=== PATIENT | female | born 1985 | race Caucasian/White ===

== ENCOUNTER 2021-02-15 10:08 | Outpatient (RCR) | payer OTHER, SELFPAY | END 2022-01-31 11:40 | disposition home or self-care (01) | LOC: HO.OT 10:08 | PROVIDERS: Visit Provider Nurse Practitioner Adult Health | DX: I89.0 Lymphedema, not elsewhere classified (principal) | CPT/HCPCS: 97167 ==

== ENCOUNTER 2022-11-15 12:30 | Emergency (ER) | payer OTHER, SELFPAY ==
[2022-11-15] VITALS (8 sets, daily range): BP systolic 109–157; BP diastolic 71–112; PULSE 95–114; RESP 15–19; TEMP 36.6–37; O2SAT 97–100; BMI 39.0
--- NOTE | 2022-11-15 12:46 | ED.GENADULT ---
HPI - General Adult General Chief complaint: Headache <Abbey Mckeon CNP - Last Filed: 11/15/22 14:38> Stated complaint: ARGUELLES,DIZZY THIS AM PER EMS <Abbey Mckeon CNP - Last Filed: 11/15/22 14:38> Time Seen by Provider: 11/15/22 19:46 <Abbey Mckeon CNP - Last Filed: 11/15/22 14:38> Source: patient <Ellen Muñiz MD - Last Filed: 11/15/22 23:38> Mode of arrival: EMS <Ellen Muñiz MD - Last Filed: 11/15/22 23:38> History of Present Illness HPI narrative: Is a 36-year-old female who presents with complaints of headache, head fullness, photosensitivity, spasms, dizziness. 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 Patient then describes a hospitalization episode and states that she has had additional COVID infections and has been treated with Paxil of it in but then states that she developed leg spasms. <Ellen Muñiz MD - Last Filed: 11/15/22 23:38> Related Data Home medications: Previous Rx's Medication Instructions Recorded nitrofurantoin 100 mg PO Q12H 5 days #10 caps 11/15/22 monohydrate/macrocrystals 100 mg capsule (Macrobid) <Abbey Mckeon CNP - Last Filed: 11/15/22 14:38> Allergies/adverse reactions: Allergies Allergy/AdvReac Type Severity Reaction Status Date / Time adhesive tape Allergy Unknown Unknown Verified 11/15/22 13:01 fluconazole Allergy Unknown Unknown Verified 11/15/22 13:01 nirmatrelvir Allergy Unknown Unknown Verified 11/15/22 13:01 [From Paxlovid (EUA)] ritonavir Allergy Unknown Unknown Verified 11/15/22 13:01 [From Paxlovid (EUA)] <Abbey Mckeon CNP - Last Filed: 11/15/22 14:38> Review of Systems Review of Systems: Pertinent positives and negatives as stated in HPI <Ellen Muñiz MD - Last Filed: 11/15/22 23:38> PMFSH Past Medical History Source: nursing notes reviewed <Ellen Muñiz MD - Last Filed: 11/15/22 23:38> Social History Social History: Social History Advance Directives: No Advance Directives Information Provided: No <bAbey Mckeon CNP - Last Filed: 11/15/22 14:38> Physical Exam ED Vital Signs: Vital Signs - 24 hr 11/15/22 12:54 11/15/22 16:57 11/15/22 19:46 Temperature 98 F 98 F 98.4 F Pulse Rate 112 H 100 102 H Respiratory Rate 19 19 18 Blood Pressure 129/93 H 157/80 H 109/71 Pulse Oximetry 100 99 97 Oxygen Delivery Method Room Air Room Air Room Air 11/15/22 19:49 11/15/22 19:50 11/15/22 19:51 Temperature Pulse Rate 108 H 102 H 114 H Respiratory Rate Blood Pressure 128/89 135/88 132/92 H Pulse Oximetry Oxygen Delivery Method 11/15/22 21:48 Temperature 98.6 F Pulse Rate 95 Respiratory Rate 15 Blood Pressure 122/71 Pulse Oximetry 100 Oxygen Delivery Method Room Air BMI result Body Mass Index 39.0 <Abbey Mckeon CNP - Last Filed: 11/15/22 14:38> Vital Signs - 24 hr 11/15/22 12:54 11/15/22 16:57 11/15/22 19:46 Temperature 98 F 98 F 98.4 F Pulse Rate 112 H 100 102 H Respiratory Rate 19 19 18 Blood Pressure 129/93 H 157/80 H 109/71 Pulse Oximetry 100 99 97 Oxygen Delivery Method Room Air Room Air Room Air 11/15/22 19:49 11/15/22 19:50 11/15/22 19:51 Temperature Pulse Rate 108 H 102 H 114 H Respiratory Rate Blood Pressure 128/89 135/88 132/92 H Pulse Oximetry Oxygen Delivery Method 11/15/22 21:48 Temperature 98.6 F Pulse Rate 95 Respiratory Rate 15 Blood Pressure 122/71 Pulse Oximetry 100 Oxygen Delivery Method Room Air BMI result Body Mass Index 39.0 VITAL SIGNS: Reviewed. GENERAL: Well developed, well nourished, in no acute distress. HEAD: Normocephalic/atraumatic EYES: PERRLA, EOMI EARS: Ext canals without abnormality, TMs non-bulging and non-erythematous NOSE: Nares patent bilateral OROPHARYNX: no oral lesions noted, posterior pharynx clear, there is some gingival hyperplasia NECK: Supple, no adenopathy LUNGS: Normal breath sounds. No adventitious sounds or accessory muscle use. SpO2<100> CARDIOVASCULAR: Regular rate and rhythm without noted murmurs ABDOMEN: Soft, non-tender, non-distended with bowel sounds. MUSCULOSKELETAL: No tenderness, deformities, or effusions noted on gross inspection. EXTREMITIES: No cyanosis, clubbing or edema. SKIN: Inspection of the skin reveals no rashes NEUROLOGIC: Alert and oriented x 4. Strength and sensation to light touch were grossly intact x 4. <Ellen Muñiz MD - Last Filed: 11/15/22 23:38> Course Course Course Narrative: This is an RME: Additional HPI, ROS, PE not included below will be deferred to primary provider. Patient is a 36-year-old female who presents to the emergency department via EMS with multiple complaints. She is screaming hysterically in the waiting room, tearful. Per EMS she was reporting severe pain 10/10; headache, diffuse body aches, knee pain, sciatica, dizziness, vertigo, photophobia. Patient reports left wrist injury, back injury, leg injury, ? both. She reports headache and dizziness, 2 days. Having severe back spasms, she is sitting in a wheelchair, but attempting to lye down on it. Having difficulty obtaining any clear story, she will not answer direct questioning, difficult to redirect. I had a ketamine treatment last year at [facility] and I've never been the same . She states her doctor sent her here, she called their office today. Offered acetaminophen/ibuprofen/Zofran she declines stating she can not take anything by mouth. Plan: Labs, urinalysis, viral testing, spoke with charge hand, anticipate her to have difficulty in waiting room 14:36 - patient has been very argumentative with security staff, other patients waiting room, has made statement about placing herself on the floor as sitting in the chair is too uncomfortable for her. She has been able to speak clearly, communicate all for concerns, she has been sleeping on phone as well. Although, she continues to not answer much questioning regarding her chief complaints/ symptoms at this time <Abbey Mckeon CNP - Last Filed: 11/15/22 14:38> Medications Administered Discontinued Medications Generic Name Dose Route Start Last Admin Trade Name Freq PRN Reason Stop Dose Admin Acetaminophen 650 mg 11/15/22 16:52 11/15/22 16:56 Acetaminophen 325 Mg Tablet PO 11/15/22 16:53 650 mg ONCE ONE Administration Acetaminophen 975 mg 11/15/22 22:51 11/15/22 23:11 Acetaminophen 325 Mg Tablet PO 11/15/22 22:52 975 mg ONCE ONE Administration Acetaminophen/Butalbital/Caffeine 1 tab 11/15/22 22:51 11/15/22 23:12 Butalb/Acetamin/Caff 50/325/40 Tablet PO 11/15/22 22:52 1 tab ONCE ONE Administration Ketorolac Tromethamine 15 mg 11/15/22 22:51 11/15/22 23:12 Ketorolac Tromethamine 15 Mg/Ml Vial IM 11/15/22 22:52 15 mg ONCE ONE Administration <Abbey Mckeon CNP - Last Filed: 11/15/22 14:38> Medications Administered Discontinued Medications Generic Name Dose Route Start Last Admin Trade Name Freq PRN Reason Stop Dose Admin Acetaminophen 650 mg 11/15/22 16:52 11/15/22 16:56 Acetaminophen 325 Mg Tablet PO 11/15/22 16:53 650 mg ONCE ONE Administration Acetaminophen 975 mg 11/15/22 22:51 11/15/22 23:11 Acetaminophen 325 Mg Tablet PO 11/15/22 22:52 975 mg ONCE ONE Administration Acetaminophen/Butalbital/Caffeine 1 tab 11/15/22 22:51 11/15/22 23:12 Butalb/Acetamin/Caff 50/325/40 Tablet PO 11/15/22 22:52 1 tab ONCE ONE Administration Ketorolac Tromethamine 15 mg 11/15/22 22:51 11/15/22 23:12 Ketorolac Tromethamine 15 Mg/Ml Vial IM 11/15/22 22:52 15 mg ONCE ONE Administration <Ellen Muñiz MD - Last Filed: 11/15/22 23:38> Medical Decision Making Medical Decision Making MDM Narrative: 36-year-old female who is here with multiple symptoms, I obtained records from both [facility] (work patient was seen in October of this year) as well as [facility] core patient was seen at the end of August 2022. Patient did describe that she has a primary care provider, Dr. Monet, who is through the [facility] system as well as she reports having been evaluated by a Neurology as well and she says that each time that she has worked up they can not find anything?. Patient does attribute some of her problems to a time when she states that ketamine was used. Orthostatics are negative. I have reviewed all of her lab work and there are no findings to better explain patient's presentation. ESR was noted to be within normal limits, CRP was mildly elevated and JORDON panel is pending. Patient was provided with Tylenol/Toradol/Fioricet. Urinalysis does demonstrate a UTI for which patient will be treated by initially receiving Macrobid here in the emergency room. Otherwise, I consulted with the inpatient hospitalist and we reviewed the treatment plans currently available for long COVID? which patient had intimated could be at play. On referencing the [facility] website the current recommendations are for physical therapy and if patient is on anti depressants possible adjustment of this medication. I did give patient expectations for her current workup. I did extensively review the documentation from [facility] and [facility] which both describe fairly extensive workups to include CT of the head, CT of the chest/V/Q scans. On re-evaluation patient is feeling better. She is otherwise stable for discharge to home. <Ellen Muñiz MD - Last Filed: 11/15/22 23:38> Differential Diagnosis Please see the discussion above <Ellen Muñiz MD - Last Filed: 11/15/22 23:38> Lab Data Please see the discussion above <Ellen Muñiz MD - Last Filed: 11/15/22 23:38> Result Diagrams: 11/15/22 13:16 11/15/22 13:16 <Abbey Mckeon CNP - Last Filed: 11/15/22 14:38> Labs: Lab Results 11/15/22 11/15/22 11/15/22 Range/Units 13:16 13:16 13:16 WBC 8.0 (4.8-10.8) X10*3/uL RBC 5.34 (4.20-5.50) X10*6/uL Hgb 13.4 (12.0-16.0) g/dl Hct 43.3 (37.0-47.0) % MCV 81.1 (80.0-98.0) fL MCH 25.1 L (27.0-33.0) pg MCHC 30.9 L (31.0-35.0) g/dl RDW 15.2 (11.0-16.0) % Plt Count 383 (160-400) X10*3/uL MPV 9.5 (9.4-12.3) fL Immature Gran % (Auto) 0.4 (0.0-0.4) % Neut % (Auto) 50.7 (45-73) % Lymph % (Auto) 39.5 (20-40) % Reagan % (Auto) 6.9 (2-11) % Eos % (Auto) 2.1 (0-4) % Baso % (Auto) 0.4 (0-2) % Lymph # (Auto) 3.2 (1.2-4.9) X10*3/uL Reagan # (Auto) 0.6 (0.1-1.2) X10*3/uL Eos # (Auto) 0.2 (0.0-0.4) X10*3/uL Baso # (Auto) 0.0 (0.0-0.2) X10*3/uL Abs Immat Gran (auto) 0.03 (0.00-0.03) X10*3/uL Absolute Neuts (auto) 4.1 (2.0-8.3) x10*3/uL Absolute Nucleated RBC 0.000 (0.0-0.012) X10*3/uL Nucleated RBC % (auto) 0.0 (0.0-0.2) /100WBC ESR (0-20) MM/HR Sodium 142 (135-145) mmol/L Potassium 3.8 (3.3-5.1) mmol/L Chloride 111 H (96-108) mmol/L Carbon Dioxide 20 L (22-29) mmol/L Anion Gap 15 (12-20) BUN 5 L (9-16) mg/dL Creatinine 0.81 (0.5-1.4) mg/dL Estim Creat Clear Calc 97.2 Estimated GFR > 60 Random Glucose 120 H (60-115) mg/dL Calcium 9.2 (8.4-10.2) mg/dL Total Bilirubin 0.5 (0.0-1.0) mg/dL AST 13 (5-31) U/L ALT 14 (0-31) U/L Alkaline Phosphatase 132 H (39-117) U/L Troponin I High Sens (<3.5-17.0) ng/L C-Reactive Protein 1.90 H (< or = 0.50) mg/dL Total Protein 6.6 (6.5-8.0) g/dL Albumin 4.0 (3.5-5.0) g/dL Lipase 18 (8-78) U/L Beta HCG, Quant < 2 mIU/mL Urine Color Urine Appearance Urine pH (5.0-9.0) Ur Specific Mcclusky (1.005-1.025) Urine Protein (Neg-Trace) mg/dL Urine Glucose (UA) (Negative) mg/dL Urine Ketones (Negative) mg/dL Urine Blood (Negative) Urine Nitrite (Negative) Ur Leukocyte Esterase (Negative) Urine RBC (0-2) /HPF Urine WBC (0-5) /HPF Ur Squamous Epith Cells (0-2) /HPF Urine Bacteria (None Seen) Hyaline Casts (0-2) /LPF Urine Test (NEGATIVE) Urine Opiates Screen (Not Detect) Urine Fentanyl Screen (Not Detect) Ur Barbiturates Screen (Not Detect) Ur Phencyclidine Scrn (Not Detect) Ur Amphetamines Screen (Not Detect) U Benzodiazepines Scrn (Not Detect) Urine Cocaine Screen (Not Detect) U Marijuana (THC) Screen (Not Detect) Ethyl Alcohol < 10 mg/dL COVID-19 (MOLLY) (Negative) COVID-19 Clin Com Influenza Type A (DAHLIA) Negative (Negative) Influenza Type B (DAHLIA) Negative (Negative) Influenza A & B Note See Note 11/15/22 11/15/22 11/15/22 Range/Units 13:16 13:16 13:16 WBC (4.8-10.8) X10*3/uL RBC (4.20-5.50) X10*6/uL Hgb (12.0-16.0) g/dl Hct (37.0-47.0) % MCV (80.0-98.0) fL MCH (27.0-33.0) pg MCHC (31.0-35.0) g/dl RDW (11.0-16.0) % Plt Count (160-400) X10*3/uL MPV (9.4-12.3) fL Immature Gran % (Auto) (0.0-0.4) % Neut % (Auto) (45-73) % Lymph % (Auto) (20-40) % Reagan % (Auto) (2-11) % Eos % (Auto) (0-4) % Baso % (Auto) (0-2) % Lymph # (Auto) (1.2-4.9) X10*3/uL Reagan # (Auto) (0.1-1.2) X10*3/uL Eos # (Auto) (0.0-0.4) X10*3/uL Baso # (Auto) (0.0-0.2) X10*3/uL Abs Immat Gran (auto) (0.00-0.03) X10*3/uL Absolute Neuts (auto) (2.0-8.3) x10*3/uL Absolute Nucleated RBC (0.0-0.012) X10*3/uL Nucleated RBC % (auto) (0.0-0.2) /100WBC ESR 13 (0-20) MM/HR Sodium (135-145) mmol/L Potassium (3.3-5.1) mmol/L Chloride (96-108) mmol/L Carbon Dioxide (22-29) mmol/L Anion Gap (12-20) BUN (9-16) mg/dL Creatinine (0.5-1.4) mg/dL Estim Creat Clear Calc Estimated GFR Random Glucose (60-115) mg/dL Calcium (8.4-10.2) mg/dL Total Bilirubin (0.0-1.0) mg/dL AST (5-31) U/L ALT (0-31) U/L Alkaline Phosphatase (39-117) U/L Troponin I High Sens < 3.5 (<3.5-17.0) ng/L C-Reactive Protein (< or = 0.50) mg/dL Total Protein (6.5-8.0) g/dL Albumin (3.5-5.0) g/dL Lipase (8-78) U/L Beta HCG, Quant mIU/mL Urine Color Urine Appearance Urine pH (5.0-9.0) Ur Specific Mcclusky (1.005-1.025) Urine Protein (Neg-Trace) mg/dL Urine Glucose (UA) (Negative) mg/dL Urine Ketones (Negative) mg/dL Urine Blood (Negative) Urine Nitrite (Negative) Ur Leukocyte Esterase (Negative) Urine RBC (0-2) /HPF Urine WBC (0-5) /HPF Ur Squamous Epith Cells (0-2) /HPF Urine Bacteria (None Seen) Hyaline Casts (0-2) /LPF Urine Test (NEGATIVE) Urine Opiates Screen (Not Detect) Urine Fentanyl Screen (Not Detect) Ur Barbiturates Screen (Not Detect) Ur Phencyclidine Scrn (Not Detect) Ur Amphetamines Screen (Not Detect) U Benzodiazepines Scrn (Not Detect) Urine Cocaine Screen (Not Detect) U Marijuana (THC) Screen (Not Detect) Ethyl Alcohol mg/dL COVID-19 (MOLLY) Negative (Negative) COVID-19 Clin Com See Note Influenza Type A (DAHLIA) (Negative) Influenza Type B (DAHLIA) (Negative) Influenza A & B Note 11/15/22 11/15/22 11/15/22 Range/Units 20:21 20:21 20:21 WBC (4.8-10.8) X10*3/uL RBC (4.20-5.50) X10*6/uL Hgb (12.0-16.0) g/dl Hct (37.0-47.0) % MCV (80.0-98.0) fL MCH (27.0-33.0) pg MCHC (31.0-35.0) g/dl RDW (11.0-16.0) % Plt Count (160-400) X10*3/uL MPV (9.4-12.3) fL Immature Gran % (Auto) (0.0-0.4) % Neut % (Auto) (45-73) % Lymph % (Auto) (20-40) % Reagan % (Auto) (2-11) % Eos % (Auto) (0-4) % Baso % (Auto) (0-2) % Lymph # (Auto) (1.2-4.9) X10*3/uL Reagan # (Auto) (0.1-1.2) X10*3/uL Eos # (Auto) (0.0-0.4) X10*3/uL Baso # (Auto) (0.0-0.2) X10*3/uL Abs Immat Gran (auto) (0.00-0.03) X10*3/uL Absolute Neuts (auto) (2.0-8.3) x10*3/uL Absolute Nucleated RBC (0.0-0.012) X10*3/uL Nucleated RBC % (auto) (0.0-0.2) /100WBC ESR (0-20) MM/HR Sodium (135-145) mmol/L Potassium (3.3-5.1) mmol/L Chloride (96-108) mmol/L Carbon Dioxide (22-29) mmol/L Anion Gap (12-20) BUN (9-16) mg/dL Creatinine (0.5-1.4) mg/dL Estim Creat Clear Calc Estimated GFR Random Glucose (60-115) mg/dL Calcium (8.4-10.2) mg/dL Total Bilirubin (0.0-1.0) mg/dL AST (5-31) U/L ALT (0-31) U/L Alkaline Phosphatase (39-117) U/L Troponin I High Sens (<3.5-17.0) ng/L C-Reactive Protein (< or = 0.50) mg/dL Total Protein (6.5-8.0) g/dL Albumin (3.5-5.0) g/dL Lipase (8-78) U/L Beta HCG, Quant mIU/mL Urine Color Yellow Urine Appearance Cloudy Urine pH 7.5 (5.0-9.0) Ur Specific Mcclusky >= 1.030 H (1.005-1.025) Urine Protein Trace (Neg-Trace) mg/dL Urine Glucose (UA) Negative (Negative) mg/dL Urine Ketones Trace (Negative) mg/dL Urine Blood Negative (Negative) Urine Nitrite Negative (Negative) Ur Leukocyte Esterase Trace H (Negative) Urine RBC 3-5 H (0-2) /HPF Urine WBC 0-5 (0-5) /HPF Ur Squamous Epith Cells 11-20 (0-2) /HPF Urine Bacteria Trace (None Seen) Hyaline Casts 0-2 (0-2) /LPF Urine Test NEGATIVE (NEGATIVE) Urine Opiates Screen Not Detected (Not Detect) Urine Fentanyl Screen Not Detected (Not Detect) Ur Barbiturates Screen Not Detected (Not Detect) Ur Phencyclidine Scrn Not Detected (Not Detect) Ur Amphetamines Screen Not Detected (Not Detect) U Benzodiazepines Scrn Not Detected (Not Detect) Urine Cocaine Screen Not Detected (Not Detect) U Marijuana (THC) Screen Not Detected (Not Detect) Ethyl Alcohol mg/dL COVID-19 (MOLLY) (Negative) COVID-19 Clin Com Influenza Type A (DAHLIA) (Negative) Influenza Type B (DAHLIA) (Negative) Influenza A & B Note <Abbey Mckeon CNP - Last Filed: 11/15/22 14:38> Lab Results 11/15/22 11/15/22 11/15/22 Range/Units 13:16 13:16 13:16 WBC 8.0 (4.8-10.8) X10*3/uL RBC 5.34 (4.20-5.50) X10*6/uL Hgb 13.4 (12.0-16.0) g/dl Hct 43.3 (37.0-47.0) % MCV 81.1 (80.0-98.0) fL MCH 25.1 L (27.0-33.0) pg MCHC 30.9 L (31.0-35.0) g/dl RDW 15.2 (11.0-16.0) % Plt Count 383 (160-400) X10*3/uL MPV 9.5 (9.4-12.3) fL Immature Gran % (Auto) 0.4 (0.0-0.4) % Neut % (Auto) 50.7 (45-73) % Lymph % (Auto) 39.5 (20-40) % Reagan % (Auto) 6.9 (2-11) % Eos % (Auto) 2.1 (0-4) % Baso % (Auto) 0.4 (0-2) % Lymph # (Auto) 3.2 (1.2-4.9) X10*3/uL Reagan # (Auto) 0.6 (0.1-1.2) X10*3/uL Eos # (Auto) 0.2 (0.0-0.4) X10*3/uL Baso # (Auto) 0.0 (0.0-0.2) X10*3/uL Abs Immat Gran (auto) 0.03 (0.00-0.03) X10*3/uL Absolute Neuts (auto) 4.1 (2.0-8.3) x10*3/uL Absolute Nucleated RBC 0.000 (0.0-0.012) X10*3/uL Nucleated RBC % (auto) 0.0 (0.0-0.2) /100WBC ESR (0-20) MM/HR Sodium 142 (135-145) mmol/L Potassium 3.8 (3.3-5.1) mmol/L Chloride 111 H (96-108) mmol/L Carbon Dioxide 20 L (22-29) mmol/L Anion Gap 15 (12-20) BUN 5 L (9-16) mg/dL Creatinine 0.81 (0.5-1.4) mg/dL Estim Creat Clear Calc 97.2 Estimated GFR > 60 Random Glucose 120 H (60-115) mg/dL Calcium 9.2 (8.4-10.2) mg/dL Total Bilirubin 0.5 (0.0-1.0) mg/dL AST 13 (5-31) U/L ALT 14 (0-31) U/L Alkaline Phosphatase 132 H (39-117) U/L Troponin I High Sens (<3.5-17.0) ng/L C-Reactive Protein 1.90 H (< or = 0.50) mg/dL Total Protein 6.6 (6.5-8.0) g/dL Albumin 4.0 (3.5-5.0) g/dL Lipase 18 (8-78) U/L Beta HCG, Quant < 2 mIU/mL Urine Color Urine Appearance Urine pH (5.0-9.0) Ur Specific Mcclusky (1.005-1.025) Urine Protein (Neg-Trace) mg/dL Urine Glucose (UA) (Negative) mg/dL Urine Ketones (Negative) mg/dL Urine Blood (Negative) Urine Nitrite (Negative) Ur Leukocyte Esterase (Negative) Urine RBC (0-2) /HPF Urine WBC (0-5) /HPF Ur Squamous Epith Cells (0-2) /HPF Urine Bacteria (None Seen) Hyaline Casts (0-2) /LPF Urine Test (NEGATIVE) Urine Opiates Screen (Not Detect) Urine Fentanyl Screen (Not Detect) Ur Barbiturates Screen (Not Detect) Ur Phencyclidine Scrn (Not Detect) Ur Amphetamines Screen (Not Detect) U Benzodiazepines Scrn (Not Detect) Urine Cocaine Screen (Not Detect) U Marijuana (THC) Screen (Not Detect) Ethyl Alcohol < 10 mg/dL COVID-19 (MOLLY) (Negative) COVID-19 Clin Com Influenza Type A (DAHLIA) Negative (Negative) Influenza Type B (DAHLIA) Negative (Negative) Influenza A & B Note See Note 11/15/22 11/15/22 11/15/22 Range/Units 13:16 13:16 13:16 WBC (4.8-10.8) X10*3/uL RBC (4.20-5.50) X10*6/uL Hgb (12.0-16.0) g/dl Hct (37.0-47.0) % MCV (80.0-98.0) fL MCH (27.0-33.0) pg MCHC (31.0-35.0) g/dl RDW (11.0-16.0) % Plt Count (160-400) X10*3/uL MPV (9.4-12.3) fL Immature Gran % (Auto) (0.0-0.4) % Neut % (Auto) (45-73) % Lymph % (Auto) (20-40) % Reagan % (Auto) (2-11) % Eos % (Auto) (0-4) % Baso % (Auto) (0-2) % Lymph # (Auto) (1.2-4.9) X10*3/uL Reagan # (Auto) (0.1-1.2) X10*3/uL Eos # (Auto) (0.0-0.4) X10*3/uL Baso # (Auto) (0.0-0.2) X10*3/uL Abs Immat Gran (auto) (0.00-0.03) X10*3/uL Absolute Neuts (auto) (2.0-8.3) x10*3/uL Absolute Nucleated RBC (0.0-0.012) X10*3/uL Nucleated RBC % (auto) (0.0-0.2) /100WBC ESR 13 (0-20) MM/HR Sodium (135-145) mmol/L Potassium (3.3-5.1) mmol/L Chloride (96-108) mmol/L Carbon Dioxide (22-29) mmol/L Anion Gap (12-20) BUN (9-16) mg/dL Creatinine (0.5-1.4) mg/dL Estim Creat Clear Calc Estimated GFR Random Glucose (60-115) mg/dL Calcium (8.4-10.2) mg/dL Total Bilirubin (0.0-1.0) mg/dL AST (5-31) U/L ALT (0-31) U/L Alkaline Phosphatase (39-117) U/L Troponin I High Sens < 3.5 (<3.5-17.0) ng/L C-Reactive Protein (< or = 0.50) mg/dL Total Protein (6.5-8.0) g/dL Albumin (3.5-5.0) g/dL Lipase (8-78) U/L Beta HCG, Quant mIU/mL Urine Color Urine Appearance Urine pH (5.0-9.0) Ur Specific Mcclusky (1.005-1.025) Urine Protein (Neg-Trace) mg/dL Urine Glucose (UA) (Negative) mg/dL Urine Ketones (Negative) mg/dL Urine Blood (Negative) Urine Nitrite (Negative) Ur Leukocyte Esterase (Negative) Urine RBC (0-2) /HPF Urine WBC (0-5) /HPF Ur Squamous Epith Cells (0-2) /HPF Urine Bacteria (None Seen) Hyaline Casts (0-2) /LPF Urine Test (NEGATIVE) Urine Opiates Screen (Not Detect) Urine Fentanyl Screen (Not Detect) Ur Barbiturates Screen (Not Detect) Ur Phencyclidine Scrn (Not Detect) Ur Amphetamines Screen (Not Detect) U Benzodiazepines Scrn (Not Detect) Urine Cocaine Screen (Not Detect) U Marijuana (THC) Screen (Not Detect) Ethyl Alcohol mg/dL COVID-19 (MOLLY) Negative (Negative) COVID-19 Clin Com See Note Influenza Type A (DAHLIA) (Negative) Influenza Type B (DAHLIA) (Negative) Influenza A & B Note 11/15/22 11/15/22 11/15/22 Range/Units 20:21 20:21 20:21 WBC (4.8-10.8) X10*3/uL RBC (4.20-5.50) X10*6/uL Hgb (12.0-16.0) g/dl Hct (37.0-47.0) % MCV (80.0-98.0) fL MCH (27.0-33.0) pg MCHC (31.0-35.0) g/dl RDW (11.0-16.0) % Plt Count (160-400) X10*3/uL MPV (9.4-12.3) fL Immature Gran % (Auto) (0.0-0.4) % Neut % (Auto) (45-73) % Lymph % (Auto) (20-40) % Reagan % (Auto) (2-11) % Eos % (Auto) (0-4) % Baso % (Auto) (0-2) % Lymph # (Auto) (1.2-4.9) X10*3/uL Reagan # (Auto) (0.1-1.2) X10*3/uL Eos # (Auto) (0.0-0.4) X10*3/uL Baso # (Auto) (0.0-0.2) X10*3/uL Abs Immat Gran (auto) (0.00-0.03) X10*3/uL Absolute Neuts (auto) (2.0-8.3) x10*3/uL Absolute Nucleated RBC (0.0-0.012) X10*3/uL Nucleated RBC % (auto) (0.0-0.2) /100WBC ESR (0-20) MM/HR Sodium (135-145) mmol/L Potassium (3.3-5.1) mmol/L Chloride (96-108) mmol/L Carbon Dioxide (22-29) mmol/L Anion Gap (12-20) BUN (9-16) mg/dL Creatinine (0.5-1.4) mg/dL Estim Creat Clear Calc Estimated GFR Random Glucose (60-115) mg/dL Calcium (8.4-10.2) mg/dL Total Bilirubin (0.0-1.0) mg/dL AST (5-31) U/L ALT (0-31) U/L Alkaline Phosphatase (39-117) U/L Troponin I High Sens (<3.5-17.0) ng/L C-Reactive Protein (< or = 0.50) mg/dL Total Protein (6.5-8.0) g/dL Albumin (3.5-5.0) g/dL Lipase (8-78) U/L Beta HCG, Quant mIU/mL Urine Color Yellow Urine Appearance Cloudy Urine pH 7.5 (5.0-9.0) Ur Specific Mcclusky >= 1.030 H (1.005-1.025) Urine Protein Trace (Neg-Trace) mg/dL Urine Glucose (UA) Negative (Negative) mg/dL Urine Ketones Trace (Negative) mg/dL Urine Blood Negative (Negative) Urine Nitrite Negative (Negative) Ur Leukocyte Esterase Trace H (Negative) Urine RBC 3-5 H (0-2) /HPF Urine WBC 0-5 (0-5) /HPF Ur Squamous Epith Cells 11-20 (0-2) /HPF Urine Bacteria Trace (None Seen) Hyaline Casts 0-2 (0-2) /LPF Urine Test NEGATIVE (NEGATIVE) Urine Opiates Screen Not Detected (Not Detect) Urine Fentanyl Screen Not Detected (Not Detect) Ur Barbiturates Screen Not Detected (Not Detect) Ur Phencyclidine Scrn Not Detected (Not Detect) Ur Amphetamines Screen Not Detected (Not Detect) U Benzodiazepines Scrn Not Detected (Not Detect) Urine Cocaine Screen Not Detected (Not Detect) U Marijuana (THC) Screen Not Detected (Not Detect) Ethyl Alcohol mg/dL COVID-19 (MOLLY) (Negative) COVID-19 Clin Com Influenza Type A (DAHLIA) (Negative) Influenza Type B (DAHLIA) (Negative) Influenza A & B Note <Ellen Muñiz MD - Last Filed: 11/15/22 23:38> External Record Review Records from [facility] and [facility] <Ellen Muñiz MD - Last Filed: 11/15/22 23:38> Discharge Plan Discharge Clinical Impression: Headache, Muscle spasm, UTI (urinary tract infection) <Abbey Mckeon CNP - Last Filed: 11/15/22 14:38> Patient Disposition: Still a Patient <Abbey Mckeon CNP - Last Filed: 11/15/22 14:38> Instructions: Urinary Tract Infection in Women (ED), Muscle Spasm (ED), General Headache (ED) <Abbey Mckeon CNP - Last Filed: 11/15/22 14:38> Additional Instructions: 1. It is very important that you follow-up with your primary care provider. Current recommendations for your symptoms are physical therapy. 2. You have a UTI and should complete the entire course of antibiotics as ordered. Please continue to remain well hydrated. Return to the ER for any worsening symptoms. <Abbey Mckeon CNP - Last Filed: 11/15/22 14:38> Prescriptions: New nitrofurantoin monohyd/m-cryst [Macrobid] 100 mg capsule 100 mg PO Q12H 5 Days Qty: 10 0RF Rx Instructions: must administer with a meal/food <Abbey Mckeon CNP - Last Filed: 11/15/22 14:38> Referrals: Erika Tran MD [Primary Care Provider] - <Abbey Mckeon CNP - Last Filed: 11/15/22 14:38>
[2022-11-15 13:27] LABS: MANUAL DIFF FLAG NO
[2022-11-15 13:29] LABS: Basophils Percent Auto 0.4 % (0-2); Eosinophils Absolute Auto 0.2 X10*3/uL (0.0-0.4); Eosinophils Percent Auto 2.1 % (0-4); Hematocrit 43.3 % (37.0-47.0); Hemoglobin 13.4 g/dl (12.0-16.0); Imm Gran Abs Auto 0.03 X10*3/uL (0.00-0.03); Imm Gran Pct Auto 0.4 % (0.0-0.4); Lymphocytes Absolute Auto 3.2 X10*3/uL (1.2-4.9); Lymphocytes Percent Auto 39.5 % (20-40); Mean Corpuscular HGB Conc 30.9 g/dl (31.0-35.0); Mean Corpuscular Hemoglobin 25.1 pg (27.0-33.0); Mean Corpuscular Volume 81.1 fL (80.0-98.0); Mean Platelet Volume 9.5 fL (9.4-12.3); Monocytes Absolute Auto 0.6 X10*3/uL (0.1-1.2); Monocytes Percent Auto 6.9 % (2-11); Neutrophils Absolute Auto 4.1 x10*3/uL (2.0-8.3); Neutrophils Percent Auto 50.7 % (45-73); Platelet Count 383 X10*3/uL (160-400); Red Blood Count 5.34 X10*6/uL (4.20-5.50); Red Cell Distribution Width 15.2 % (11.0-16.0)
[2022-11-15 13:44] LABS: COVID-19 Test Negative (Negative); IDNOW Serial# 16C4AD1C
[2022-11-15 13:45] LABS: IDNOW Serial# BCCEAD1C; Influenza A Negative (Negative); Influenza B2 Negative (Negative)
[2022-11-15 13:49] LABS: Alanine Aminotransferase 14 U/L (0-31); Alkaline Phosphatase 132 U/L (39-117); Anion Gap 15 (12-20); Aspartate Amino Transferase 13 U/L (5-31); Bilirubin Total 0.5 mg/dL (0.0-1.0); Blood Urea Nitrogen 5 mg/dL (9-16); Calcium 9.2 mg/dL (8.4-10.2); Carbon Dioxide 20 mmol/L (22-29); Chloride 111 mmol/L (96-108); Creatinine Clr Calc Pharmacy 97.2; Estimated Glomerular Filt Rate > 60; Ethanol < 10 mg/dL; Glucose Random 120 mg/dL (60-115); Lipase 18 U/L (8-78); Potassium 3.8 mmol/L (3.3-5.1); Sodium 142 mmol/L (135-145); Total Protein 6.6 g/dL (6.5-8.0)
[2022-11-15 13:59] LABS: Troponin-I High Sensitivity < 3.5 ng/L (<3.5-17.0)
--- NOTE | 2022-11-15 14:36 | PC.NURSE ---
pt speaking in full clear sentences on the phone and arguing with another pt in the mwr
[2022-11-15] MEDS: Acetaminophen 325 MG TABLET 650 MG PO (16:56)
--- NOTE | 2022-11-15 17:00 | PC.NURSE ---
reassessment done, now alert, pleasant, c/o olivier and photophobia, sitting in chair straight and both legs propped up on leg rests
[2022-11-15 20:28] LABS: HCG Quantitative < 2 mIU/mL
[2022-11-15 20:30] LABS: Appearance Urine Cloudy; Color Urine Yellow; Glucose Urine UA Negative (Negative); Leukocyte Esterase Urine Trace (Negative); Nitrite Urine Negative (Negative); PH 7.5 (5.0-9.0); Specific Gravity - Urine >= 1.030 (1.005-1.025); UMIC TRIGGER UACC YES; Urine Blood Negative (Negative); Urine Ketones Trace mg/dL (Negative); Urine Protein Trace mg/dL (Neg-Trace)
[2022-11-15 20:34] LABS: UPreg QC Valid YES; Urine Pregnancy NEGATIVE (NEGATIVE)
[2022-11-15 20:35] LABS: Bacteria Urine Trace (None Seen); Hyaline Casts Urine 0-2 /LPF (0-2); WBC Urine 0-5 /HPF (0-5)
[2022-11-15 20:43] LABS: Amphetamine Screen Urine Not Detected (Not Detect); Barbiturates, Urine Not Detected (Not Detect); Benzodiazepines Screen Urine Not Detected (Not Detect); Cannabinoid Screen Urine Not Detected (Not Detect); Cocaine Screen Urine Not Detected (Not Detect); Fentanyl, urine Not Detected (Not Detect); Opiate Screen Urine Not Detected (Not Detect); Phencyclidine Screen Urine Not Detected (Not Detect)
[2022-11-15 22:49] LABS: Erythrocyte Sedimentation Rate 13 MM/HR (0-20)
[2022-11-15] MEDS: Acetaminophen 325 MG TABLET 975 MG PO (23:11)
[2022-11-15] MEDS: Butalb/Acetamin/Caff 50/325/40 TABLET 1 TAB PO (23:12)
[2022-11-15] MEDS: Ketorolac Tromethamine 15 MG/ML VIAL IM (23:12)
[2022-11-16 00:05] VITALS: BP 134/84; PULSE 93; RESP 16; TEMP 36.9; O2SAT 99
[2022-11-16] MEDS: Nitrofurantoin Monohyd/M-Cryst 100 MG CAPSULE PO (00:09)
[2022-11-19 14:53] LABS: Anti Nuclear Antibody Screen NEGATIVE (NEGATIVE)
== END 2022-11-16 00:30 | disposition home or self-care (01) ==
PROVIDERS: Nurse Practitioner Family; Emergency Provider Student in an Organized Health Care Education/Training Program; PCP Internal Medicine
DX: R51.9 Headache, unspecified (principal); M62.838 Other muscle spasm; N39.0 Urinary tract infection, site not specified; Z20.822 Contact with and (suspected) exposure to COVID-19
CPT/HCPCS: 36415; 80053; 80307; 81001; 81025; 82077; 83690; 84484; 84702; 85025; 85652; 86038; 86039; 86140; 87502; 87635; 96372; 99284; J1885

== ENCOUNTER 2023-10-30 14:28 | Outpatient (AMB) | payer MEDICARE, MEDICAID, SELFPAY ==
--- NOTE | 2023-10-30 14:33 | MHC.OFFVIS ---
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 These episodes last for about 3 minutes. This has been going on since June 2024. Industrial Cook Required: No Allergies adhesive tape Allergy (Unknown, Verified 10/30/23 14:37) Unknown fluconazole Allergy (Unknown, Verified 10/30/23 14:37) Unknown nirmatrelvir [From Paxlovid (EUA)] Allergy (Unknown, Verified 10/30/23 14:37) Unknown ritonavir [From Paxlovid (EUA)] Allergy (Unknown, Verified 10/30/23 14:37) Unknown Medication List - Last Reconciled 10/30/23 by Peace Stanton MD albuterol sulfate 90 mcg/actuation 2 puffs inhalation Q6H PRN ammonium lactate 12% 1 appl topical DAILY budesonide-formoterol 80-4.5 mcg/actuation (Symbicort) 1 puff inhalation BID cetirizine (Allergy Relief (cetirizine)) 10 mg PO DAILY PRN docusate sodium (Colace) 100 mg PO DAILY FA-B cmp,C-rice bran-amaya hips 400-500 mcg-mg (B-complex with vitamin C) tabs PO fluticasone propionate 50 mcg/actuation 1 spray intranasal DAILY folic acid 1 mg PO DAILY hydrocortisone 1% (Anti-Itch (hydrocortisone)) 1 appl topical TID PRN hydrocortisone 5 mg PO TID lidocaine HCl 4% (AsperFlex (lidocaine HCl)) ea topical loratadine (Allergy Relief (loratadine)) 10 mg PO DAILY HPI HPI Comments History of Present Illness Details 37y/o female comes for evaluation of generalized body shaking during sleep . ABout 2 years ago she had COVID - had meds , had a reaction so was hospitalized many times.Suddenly she was not able to walk. she says she was treated with ketamine for 5 days. she was discharged to rehab - she started walking again after 2 days with crutches. Later that year ( 2021) she started having jerking moving in her legs .Itw as always at rest but can happen anytime of the day. About 6 months ago the spams worsened to involve the whole body and was affecting her sleep and can wake her up. she is alsoin pain.she also ahs some tingling and abnormal sensation in her legs . she wakes up once a night. she feels her muscle spasms have decreased. she also reports migraines with light sensitvity , nausea etc. In 2021 the migraines were frequent 2-3/week but now its better. 1/week. SHe had a sleep study at [facility] ( [place]) and has Shanna and she is scheduled for a repeat study. 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 she had injury at work in 2016 and had surgery of patella in 2017 and another surgery at 2019. she had multiple visits with [facility] and PT. she also claims that while she was at [facility] while she was sitting in a wheel chair that was broken and her leg fell and she hurt her knee. she has pressured speech and sometime sit was hard to understand the events she was describing. [facility] Medical History (Updated 10/30/23 @ 15:28 by Peace Stanton MD) Nocturnal leg movements Surgical History (Updated 10/30/23 @ 14:58 by Tg Medley CMA) H/O knee surgery Previous section Social History (Updated 10/30/23 @ 15:03 by Tg Medley CMA) Household Members: Children Housing: Apartment Alcohol intake: never Patient Tobacco Use Status: Never used Tobacco Use of substances other than those prescribed or required for medical reasons: No Physical Exam Vital Signs: Last Vital Signs Pulse 85 10/30/23 14:42 Resp 1 L 10/30/23 14:42 BP 110/70 10/30/23 14:42 Pulse Ox 100 10/30/23 14:42 Oxygen Delivery Method Room Air 10/30/23 14:42 BMI result Body Mass Index 36.1 Const General: cooperative, healthy appearing, comfortable and no acute distress Nutritional Appearance: overweight Orientation/consciousness: patient oriented x3 Eyes Pupils: Equal, round and reactive pupils present Neuro Other: Generalized body shaking when she touches the back of her neck Tight neck muscles mallampatti grade 4 General: patient oriented x3, gait normal, tone normal, moves all extremities and no focal motor deficits Cranial nerves: Yes Facial sensation intact/muscles of mastication intact, Yes Equal, round and reactive pupils present, Yes Bilaterally intact EOM present, Yes Nystagmus not present, Yes Normal facial strength present, Yes Midline tongue present, Yes Symmetric palate elevation present, Yes Ability to bilaterally rotate head present and Yes Ability to bilaterally elevate shoulders present Cognition (Neuro): normal cognition Gait exam (Neuro): Normal gait present Motor exam (neuro): 5/5 motor strength present throughout and Normal motor muscle tone present throughout Deep tendon reflexes (DTR's): Right triceps reflex intensity grade: 1+, Left triceps reflex intensity grade: 1+, Rt Biceps (C5, C6): 1+, Left biceps reflex intensity grade: 1+, Right brachioradialis reflex intensity grade: 1+, Left brachioradialis reflex intensity grade: 1+, Right patellar reflex intensity grade: 1+ and Left patellar reflex intensity grade: 1+ Coordination: [id number] test normal Assessment & Plan Assessment & Plan (1) Nocturnal leg movements: Comment: ? Periodic limb movements Code(s): R25.8 - Other abnormal involuntary movements Plan Reports from [facility] - neurology ER reports Sleep study report from [facility] I will trial her on gabapentin 300mg qhs Medications: New gabapentin 300 mg PO BEDTIME 30 caps 6RF Discontinued nitrofurantoin monohyd/m-cryst 100 mg (Macrobid) must administer with a meal/food Discontinued Reason: Patient no longer taking 100 mg PO Q12H 5 days 10 caps 0RF Coding Level of Care Code New Pt Level 4 (19449) Diagnoses Nocturnal leg movements R25.8
[2023-10-30 14:42] VITALS: BP 110/70; PULSE 85; RESP 1; O2SAT 100; BMI 36.1
== END 2023-10-30 15:38 | disposition home or self-care (01) ==
PROVIDERS: PCP Internal Medicine; Visit Provider Psychiatry & Neurology Neurology
DX: R25.8 Other abnormal involuntary movements (principal)
CPT/HCPCS: 99204

== ENCOUNTER → 2023-10-30 14:28 | Outpatient (BNVA) | payer MEDICARE, MEDICAID, SELFPAY | PROVIDERS: PCP Internal Medicine; Visit Provider Psychiatry & Neurology Neurology | DX: R25.8 Other abnormal involuntary movements (principal) | CPT/HCPCS: 99202 ==